=== PATIENT | female | born 1980 | race Caucasian/White ===

== ENCOUNTER 2018-12-21 21:02 | Emergency (ER) | payer OTHER ==
[~2018-12-21] VITALS: Ht 152.4 cm; Wt 62.6 kg
[2018-12-21 21:10] VITALS: BP 176/111
--- NOTE | 2018-12-21 21:52 | NUR ---
PT AMBULATED TO BED 01.
--- NOTE | 2018-12-21 21:55 | NUR ---
38 Y/O F PRESENTED TO ED WITH C/O ELEVATED BLOOD PRESSURE X1 DAY. AAOX4. C/O HEADACHE AND INTERMINTENT BLURRED VISION. 7/10 PAIN, PRESSURE LOCATED AT TEMPLES. BP 162/93, HR 95. SKIN NORMAL PER ETHNICITY. PT PLACED IN GOWN AND ATTACHED TO MONITORING SYSTEM. BEDRAIL X1 UP. BED IN LOWEST POSTION. WILL CONTINUE TO MONITOR.
[2018-12-21 21:56] LABS: BASOPHILS % (AUTO) 0.4 % (0.0-2.0); EOSINOPHILS # (AUTO) 0.1 K/uL (0-0.4); EOSINOPHILS % (AUTO) 1.4 % (0.0-4.0); HEMATOCRIT 39.3 % (36-48); HEMOGLOBIN 12.8 g/dL (12.0-16.0); LYMPHOCYTES # (AUTO) 2.5 K/uL (2.5-16.5); LYMPHOCYTES % (AUTO) 27.4 % (20.5-51.1); MEAN CORPUSCULAR HEMOGLOBIN 26 pg (27-31); MEAN CORPUSCULAR HGB CONC 33 g/dL (33-37); MEAN CORPUSCULAR VOLUME 80.9 fL (80-94); MONOCYTES # (AUTO) 0.5 K/uL (0.8-1.0); MONOCYTES % (AUTO) 5.6 % (1.7-9.3); NEUTROPHILS # (AUTO) 5.9 K/uL (1.8-7.7); NEUTROPHILS % (AUTO) 65.2 % (42.2-75.2); PLATELET COUNT (AUTO) 294 K/uL (140-450); RED BLOOD CELL COUNT(AUTO) 4.86 MIL/uL (4.20-5.40); RED CELL DISTRIBUTION WIDTH 15.1 % (11.6-13.7); WHITE BLOOD COUNT (AUTO) 9.1 K/uL (4.8-10.8)
[2018-12-21 22:11] LABS: CARBON DIOXIDE 28.8 mmol/L (21-32); CREATININE 0.7 mg/dL (0.6-1.3); POTASSIUM 3.8 mmol/L (3.5-5.1)
[2018-12-21 22:17] LABS: ALBUMIN 4.1 g/dL (3.4-5.0); TOTAL BILIRUBIN 0.5 mg/dL (0.0-1.0)
--- NOTE | 2018-12-21 23:22 | NUR ---
PT AWAKE AND SEATED UPRIGHT. VSS AT THIS TIME. ALL NEEDS MET. WILL CONTINUE TO MONITOR.
--- NOTE | 2018-12-22 00:39 | NUR ---
Dileep barrios in ED - 12/22/[address] HICKMAN AT [facility] EVALUTING PT
--- NOTE | 2018-12-22 00:45 | NUR ---
DR. HICKMAN AT BEDSIDE EVALUTING PT
[2018-12-22 01:00] VITALS: BP 132/72
== END 2018-12-22 01:00 | disposition home or self-care (01) ==
LOC: MED 21:02
DX: I10 Essential (primary) hypertension (principal); R51 Headache
CPT/HCPCS: 36415; 71045; 80053; 84484; 85025; 93005; 99284; Q0092

== ENCOUNTER 2019-03-15 20:12 | Emergency (ER) | payer OTHER ==
[~2019-03-15] VITALS: Ht 152.4 cm; Wt 60.8 kg
[2019-03-15 20:42] VITALS: BP 165/97
--- NOTE | 2019-03-15 20:50 | NUR ---
ELEVATED BP, AT HOME BP WAS 183/103 AT 1930. C/O HEADACHE. DENIES DIZZY, N/V, OR VISION CHANGES. PT NOT ON ANY HTN MEDICATION, BP REGULATED BY DIET AND EXERCISE. BS -208. ERMD AWARE. PLACED ON MONITOR. SIDE RAILX1. HX- HTN, DM, HYPOTHYROIDISM NKA RX: SYNTRHOID; METFORMIN; GLIMAPRAIDE
--- NOTE | 2019-03-15 20:52 | NUR ---
PT AMBULATED TO ER BED 01
--- NOTE | 2019-03-15 21:03 | NUR ---
ERMD EVALUATING PATIENT AT THIS TIME.
[2019-03-15] MEDS ORDERED: IBUPROFEN 400 MG TAB PO ONE (21:05)
[2019-03-15] MEDS ORDERED: HYDROCHLOROTHIAZIDE 25 MG TAB PO ONE (21:05)
[2019-03-15] MEDS ORDERED: hydrALAZINE 20 MG/ML VIAL IM ONE (21:40)
[2019-03-15 21:48] LABS: BASOPHILS % (AUTO) 0.4 % (0.0-2.0); EOSINOPHILS # (AUTO) 0.1 K/uL (0-0.4); EOSINOPHILS % (AUTO) 1.4 % (0.0-4.0); HEMATOCRIT 37.1 % (36-48); HEMOGLOBIN 12.1 g/dL (12.0-16.0); LYMPHOCYTES # (AUTO) 2.2 K/uL (2.5-16.5); LYMPHOCYTES % (AUTO) 23.2 % (20.5-51.1); MEAN CORPUSCULAR HEMOGLOBIN 27 pg (27-31); MEAN CORPUSCULAR HGB CONC 33 g/dL (33-37); MEAN CORPUSCULAR VOLUME 83.1 fL (80-94); MONOCYTES # (AUTO) 0.6 K/uL (0.8-1.0); MONOCYTES % (AUTO) 6.4 % (1.7-9.3); NEUTROPHILS # (AUTO) 6.4 K/uL (1.8-7.7); NEUTROPHILS % (AUTO) 68.6 % (42.2-75.2); PLATELET COUNT (AUTO) 295 K/uL (140-450); RED BLOOD CELL COUNT(AUTO) 4.46 MIL/uL (4.20-5.40); RED CELL DISTRIBUTION WIDTH 14.3 % (11.6-13.7); WHITE BLOOD COUNT (AUTO) 9.3 K/uL (4.8-10.8)
[2019-03-15 21:50] VITALS: BP 137/79
--- NOTE | 2019-03-15 21:52 | NUR ---
PT BP 137/78, HR 88. DR ELIZALDE MADE AWARE. PER MORRIS HERNANDEZ, HOLD HYDRALAZINE 20MG IM AT THIS TIME.
[2019-03-15 22:09] LABS: ALBUMIN 3.4 g/dL (3.4-5.0); ANION GAP 14.3 (8-16); CARBON DIOXIDE 25.5 mmol/L (21-32); CREATININE 0.6 mg/dL (0.6-1.3); POTASSIUM 3.8 mmol/L (3.5-5.1); TOTAL BILIRUBIN 0.5 mg/dL (0.0-1.0)
--- NOTE | 2019-03-15 22:45 | NUR ---
Patient discharged with v/s stable. Written and verbal after care instructions given and explained. Patient alert, oriented and verbalized understanding of instructions. Ambulatory with steady gait. All questions addressed prior to discharge. ID band removed. Patient advised to follow up with PMD. Rx of naprosyn and hydroclorothiazide given. Patient educated on indication of medication including possible reaction and side effects. Opportunity to ask questions provided and answered.
== END 2019-03-15 22:45 | disposition home or self-care (01) ==
LOC: MED 20:12
DX: I10 Essential (primary) hypertension (principal); G44.209 Tension-type headache, unspecified, not intractable; E11.8 Type 2 diabetes mellitus with unspecified complications; E03.9 Hypothyroidism, unspecified
CPT/HCPCS: 36415; 80053; 82948; 85025; 99283; J0360

== ENCOUNTER 2019-07-03 17:14 | Emergency (ER) | payer OTHER ==
[~2019-07-03] VITALS: Ht 152.4 cm; Wt 58.1 kg
[2019-07-03 17:21] VITALS: BP 123/85
--- NOTE | 2019-07-03 17:26 | NUR ---
38 Y/O FEMALE PATIENT PRESENTS TO ER WITH COUGH & BODY ACHES X 1 WEEK. C/O OF CHILLS, PRODUCTIVE COUGH W/ YELLOW PHLEGM, AND CHEST CONGESTION, R/R EVEN AND UNLABORED. DENIES NAUSEA, VOMITING, HEADACHES AND FEVER. DENIES TAKING ANY OTC MEDS, "THEY'RE NOT HELPING ME". RATES BODY ACHE, AND COUGHING PAIN AT 5/10. LMP 06/14/2019. WILL CONTINUE TO MONITOR. BED RAILS X2 PMH: DM II, HTN, HYPOTHYROIDISM NKDA
--- NOTE | 2019-07-03 17:29 | NUR ---
PT TO ER BED 7
--- NOTE | 2019-07-03 17:45 | NUR ---
XRAY AT BEDSIDE
--- NOTE | 2019-07-03 18:09 | NUR ---
PT IN BED RESTING, QUIETLY. CONTINUES TO RATE PAIN AT 5/10 WHEN COUGHING. R/R UNLABORED, AND EQUAL. WILL CONTINUE TO MONITOR. BED RAIL X1
[2019-07-03] MEDS: DEXAMETHASONE 10 MG/ML VIAL IM ONE (18:51)
[2019-07-03 19:00] VITALS: BP 123/85
--- NOTE | 2019-07-03 19:00 | NUR ---
Patient discharged with v/s stable. Written and verbal after care instructions given and explained. Patient alert, oriented and verbalized understanding of instructions. Ambulatory with steady gait. All questions addressed prior to discharge. ID band removed. Patient advised to follow up with PMD. Rx of TESSALON PEARLES, ALBUTEROL, PREDNISONE given. Patient educated on indication of medication including possible reaction and side effects. Opportunity to ask questions provided and answered.
== END 2019-07-03 19:00 | disposition home or self-care (01) ==
LOC: MED 17:14
DX: J20.9 Acute bronchitis, unspecified (principal); E11.9 Type 2 diabetes mellitus without complications; I10 Essential (primary) hypertension; Z98.890 Other specified postprocedural states
CPT/HCPCS: 71045; 81025; 96372; 99283; J1100; Q0092

== ENCOUNTER 2019-07-08 12:25 | Emergency (ER) | payer OTHER ==
[~2019-07-08] VITALS: Ht 152.4 cm; Wt 61.2 kg
[2019-07-08 12:39] VITALS: BP 126/84
--- NOTE | 2019-07-08 15:02 | NUR ---
PT AMBULATED TO CHAIR C.
--- NOTE | 2019-07-08 15:15 | NUR ---
38/F presents ambulatory to ED, c/o cough, congestion, x6 days, worsening. Reports difficulty breathing through L nostril only. Denies fever/chills, n/v. Pt was seen here recently, dx bronchitis, rx proair and rx prednisone (stopped due to resolved adverse reaction of "screaming in head"). Pt awake and alert, skin normal color warm and dry, rr even and unlabored. Lung sounds clear BL. Hx DM, HTN, proair
[2019-07-08 15:53] VITALS: BP 115/80
--- NOTE | 2019-07-08 15:53 | NUR ---
Patient discharged with v/s stable. Written and verbal after care instructions given and explained. Patient alert, oriented and verbalized understanding of instructions. Ambulatory with steady gait. All questions addressed prior to discharge. ID band removed. Patient advised to follow up with PMD. Rx of flonase, loratadine given. Patient educated on indication of medication including possible reaction and side effects. Opportunity to ask questions provided and answered.
== END 2019-07-08 15:53 | disposition home or self-care (01) ==
LOC: MED 12:25
DX: J00 Acute nasopharyngitis [common cold] (principal); E11.9 Type 2 diabetes mellitus without complications; I10 Essential (primary) hypertension; E07.9 Disorder of thyroid, unspecified; Z92.241 Personal history of systemic steroid therapy
CPT/HCPCS: 99283

== ENCOUNTER 2020-03-01 12:00 | Emergency (ER) | payer OTHER ==
[~2020-03-01] VITALS: Ht 154.9 cm; Wt 58.5 kg
[2020-03-01 12:06] VITALS: BP 141/72
[2020-03-01 12:52] LABS: BASOPHILS # (AUTO) 0.2 K/uL (0.00-0.22); EOSINOPHILS # (AUTO) 0.1 K/uL (0-0.4); EOSINOPHILS % (AUTO) 1.4 % (0.0-4.0); HEMATOCRIT 37.5 % (36-48); HEMOGLOBIN 12.3 g/dL (12.0-16.0); LYMPHOCYTES # (AUTO) 2.1 K/uL (2.5-16.5); LYMPHOCYTES % (AUTO) 25.8 % (20.5-51.1); MEAN CORPUSCULAR HEMOGLOBIN 27 pg (27-31); MEAN CORPUSCULAR HGB CONC 33 g/dL (33-37); MEAN CORPUSCULAR VOLUME 82.5 fL (80-94); MONOCYTES # (AUTO) 0.6 K/uL (0.8-1.0); MONOCYTES % (AUTO) 6.7 % (1.7-9.3); NEUTROPHILS # (AUTO) 5.3 K/uL (1.8-7.7); NEUTROPHILS % (AUTO) 64.1 % (42.2-75.2); PLATELET COUNT (AUTO) 294 K/uL (140-450); RED BLOOD CELL COUNT(AUTO) 4.54 MIL/uL (4.20-5.40); RED CELL DISTRIBUTION WIDTH 13.9 % (11.6-13.7); WHITE BLOOD COUNT (AUTO) 8.2 K/uL (4.8-10.8)
[2020-03-01 12:55] LABS: ANION GAP 14.8 (8-16); CREATININE 0.7 mg/dL (0.6-1.3); POTASSIUM 3.8 mmol/L (3.5-5.1)
[2020-03-01 13:34] VITALS: BP 118/96
== END 2020-03-01 13:34 | disposition home or self-care (01) ==
LOC: MED 12:00
DX: R07.9 Chest pain, unspecified (principal); E11.9 Type 2 diabetes mellitus without complications; E03.9 Hypothyroidism, unspecified; I10 Essential (primary) hypertension; Z88.6 Allergy status to analgesic agent
CPT/HCPCS: 36415; 80048; 84484; 85025; 93005; 99284